=== PATIENT | female | born 1945 | race Caucasian/White ===

== ENCOUNTER 2018-08-30 17:19 | Inpatient (IN) | payer OTHER ==
[~2018-08-30] VITALS: Ht 165.1 cm; Wt 61.2 kg
[2018-08-30] MEDS ORDERED: SODIUM CHLORIDE 0.9% 500 ML IV ONE (18:15)
[2018-08-30 19:11] LABS: BASOPHILS % 0.2 % (0.0-2.0); EOSINOPHILS % 0.1 % (0.0-5.0); HEMATOCRIT. 40.8 % (36.0-48.0); HEMOGLOBIN. 13.8 g/dL (12.0-16.0); LYMPHOCYTES % 9.3 % (20.0-50.0); MEAN CORPUSCULAR HEMOGLOBIN 29.7 pg (28.0-32.0); MEAN CORPUSCULAR VOLUME 87.5 fL (81.0-99.0); MEAN PLATELET VOLUME 8.7 fl (7.4-10.4); MONOCYTES % 14.5 % (2.0-8.0); NEUTROPHILS % 75.9 % (40.0-76.0); PLATELET 365 x1000/uL (130-400); RED BLOOD CELL COUNT 4.66 mill/uL (4.2-5.4); RED CELL DISTRIBUTION WIDTH 13.8 % (11.6-14.6)
[2018-08-30 19:13] LABS: CHLORIDE 97 mEq/L (98-107)
[2018-08-30 21:31] LABS: CLARITY URINE CLOUDY (CLEAR); COLOR URINE YELLOW (YELLOW); KETONES URINE TRACE (NEGATIVE); LEUKOCYTE ESTERASE URINE 2+ (NEGATIVE); NITRITE URINE POSITIVE (NEGATIVE); OCCULT BLOOD URINE 1+ (NEGATIVE); PROTEIN URINE 1+ (NEGATIVE); SPECIFIC GRAVITY URINE 1.019 (1.005-1.030)
[2018-08-30] MEDS ORDERED: CEFTRIAXONE 1 G PREMIX 50 ML IV ONE (21:45)
[2018-08-31] VITALS (7 sets, daily range): BP systolic 130–161; BP diastolic 80–98
[2018-08-31] MEDS ORDERED: ACETAMINOPHEN 650MG SUPP PR PRN (02:45)
[2018-08-31] MEDS ORDERED: LORAZEPAM 2MG/ML CPJ IV PRN (02:45)
[2018-08-31] MEDS ORDERED: ONDANSETRON HCL 4MG/2ML INJ IV PRN (02:45)
[2018-08-31] MEDS ORDERED: DOCUSATE SODIUM 100MG CAPSULE PO PRN (02:45)
[2018-08-31] MEDS ORDERED: GUAIFENESIN 200MG/10ML SUGAR FREE UDC PO PRN (02:45)
[2018-08-31] MEDS ORDERED: CLONIDINE 0.1MG TABLET PO PRN (02:45)
[2018-08-31] MEDS: DEXT 5%/0.45% NACL 1000ML 1,000 ML IV SCH ×2 (03:09→17:49)
[2018-08-31] MEDS ORDERED: LEVOFLOXACIN 500MG PREMIX 100 ML IV NR (06:00)
[2018-08-31] MEDS: ENOXAPARIN 40MG/0.4ML SYR SUBCUT SCH (08:11)
[2018-08-31] MEDS: AMLODIPINE 10MG TABLET PO SCH (15:06)
[2018-08-31] MEDS ORDERED: METF-416 MT (18:31)
[2018-08-31] MEDS ORDERED: ATOR80TA MT (18:31)
[2018-08-31] MEDS ORDERED: GLIP5TAB12 MT (18:31)
[2018-08-31] MEDS ORDERED: DEXTROSE 50% WATER 50ML SYRINGE IV PRN (19:00)
[2018-08-31] MEDS ORDERED: ATORVASTATIN CALCIUM 40MG TABLET PO SCH (21:00)
[2018-08-31] MEDS ORDERED: INSULIN LISPRO 100 UNITS/ML SUBCUT SCH (21:00)
[2018-08-31] MEDS: BLOOD SUGAR DIAGNOSTIC STRIP TEST SCH (21:38)
[2018-08-31] MEDS ORDERED: INSULIN GLARGINE UD 100 UNITS/ML SYR SUBCUT NR (23:59)
[2018-09-01] VITALS: BP 123/72
[2018-09-01] MEDS: INSULIN LISPRO 100 UNITS/ML SUBCUT SCH ×3 (00:07→12:12)
[2018-09-01 04:00] VITALS: BP 122/68
[2018-09-01 06:15] LABS: HEMATOCRIT. 36.4 % (36.0-48.0); HEMOGLOBIN. 12.2 g/dL (12.0-16.0); MEAN CORPUSCULAR HEMOGLOBIN 29.1 pg (28.0-32.0); MEAN CORPUSCULAR VOLUME 87.3 fL (81.0-99.0); MEAN PLATELET VOLUME 8.4 fl (7.4-10.4); PLATELET 323 x1000/uL (130-400); RED BLOOD CELL COUNT 4.17 mill/uL (4.2-5.4); RED CELL DISTRIBUTION WIDTH 13.6 % (11.6-14.6)
[2018-09-01] MEDS: BLOOD SUGAR DIAGNOSTIC STRIP TEST SCH ×3 (06:33→16:45)
[2018-09-01] MEDS: DEXT 5%/0.45% NACL 1000ML 1,000 ML IV SCH (06:33)
[2018-09-01 07:28] LABS: CHLORIDE 103 mEq/L (98-107)
[2018-09-01 08:00] VITALS: BP 134/84
[2018-09-01] MEDS ORDERED: LEVOFLOXACIN 250MG PREMIX 50 ML IV SCH (08:00)
[2018-09-01] MEDS: AMLODIPINE 10MG TABLET PO SCH (08:44)
[2018-09-01] MEDS: ENOXAPARIN 40MG/0.4ML SYR SUBCUT SCH (08:44)
[2018-09-01 09:43] LABS: PLATELET ESTIMATE NORMAL
[2018-09-01 12:00] VITALS: BP 125/77
[2018-09-01] MEDS ORDERED: LEVO500T2 MT ×2 (15:06→15:13)
[2018-09-01 15:13] VITALS: BP 125/77
[2018-09-01 16:00] VITALS: BP 116/75
== END 2018-09-01 19:05 | disposition home or self-care (01) | DRG 871 ==
LOC: ER 17:19 → EDBD 22:07 → 5WST 22:07 → ENRESERV 23:43
PROVIDERS: ADMIT Internal Medicine; ATTEND Internal Medicine
DX: A41.9 Sepsis, unspecified organism (principal); E43 Unspecified severe protein-calorie malnutrition; G92 Toxic encephalopathy; N39.0 Urinary tract infection, site not specified; I69.354 Hemiplegia and hemiparesis following cerebral infarction affecting left non-dominant side; B96.20 Unspecified Escherichia coli [E. coli] as the cause of diseases classified elsewhere; E11.65 Type 2 diabetes mellitus with hyperglycemia; E78.00 Pure hypercholesterolemia, unspecified; E78.5 Hyperlipidemia, unspecified; I10 Essential (primary) hypertension; J44.9 Chronic obstructive pulmonary disease, unspecified; Z88.0 Allergy status to penicillin; Z68.22 Body mass index [BMI] 22.0-22.9, adult
CPT/HCPCS: 36415; 71045; 73090; 73590; 82962; 83036; 84443; 87077; 87186; 93005; 93970; 96365; 99285; J0696; J1650; J1815; J1956; J7040